=== PATIENT | male | born 1955 | race Caucasian/White ===

== ENCOUNTER → 2017-10-07 | Day surgery (SDC) | payer OTHER ==
[2017-10-02 10:04] VITALS: BMI 32.0
--- NOTE | 2017-10-02 10:43 | PAT Medication Instructions ---
Service Date Oct 02, 2017. Current Home Medication List Albuterol Sulfate (Proair Respiclick), 2 PUFFS INH PRN Clindamycin Phosphate (Topical (Clindamycin Phosphate), 1 APPLN TOP QAM Fluticasone Propionate (Nasal) (Flonase Allergy Relief), 2 SPRAYS INTNAS PRN Montelukast Sodium (Singulair), 10 MG PO QAM Pantoprazole (Protonix), 40 MG PO QPM Prednisone (Prednisone), 10 MG PO Q2D Medication Instructions For Your Scheduled Surgery - Hold the following medications 24 hours prior to surgery: Clindamycin Phosphate (Topical (Clindamycin Phosphate), 1 APPLN TOP QAM - Take the following medications the morning of surgery with a sip of water: Albuterol Sulfate (Proair Respiclick), 2 PUFFS INH PRN Fluticasone Propionate (Nasal) (Flonase Allergy Relief), 2 SPRAYS INTNAS PRN ( if needed) Montelukast Sodium (Singulair), 10 MG PO QAM Prednisone (Prednisone), 10 MG PO Q2D (if scheduled to take) - Take the following medications as scheduled the night before surgery: Albuterol Sulfate (Proair Respiclick), 2 PUFFS INH PRN Fluticasone Propionate (Nasal) (Flonase Allergy Relief), 2 SPRAYS INTNAS PRN ( if needed) Pantoprazole (Protonix), 40 MG PO QPM If you have any questions please call us at [phone] or [phone] or [phone]
[~2017-10-07] VITALS: Ht 177.8 cm; Wt 102.9 kg
[~2017-10-07] MED LIST: ALBU18002 INH; ATROPINE SULFATE 0.1 MG/ML 5ML SYR IV PRN; BUPIVACAINE 0.5 % 5 MG/1 ML MPF 30ML VIAL ONE; CEFAZOLIN 2000MG IV PUSH 15 ML IV SCH; CLIN1GEL5 TOP; DEXAMETHASONE SOD INJ 4 MG/ML VIAL ONE; EpHEDrine SULFATE INJ 50 MG/ML AMP IV PRN; FENTANYL CITRATE INJ 50 MCG/1 ML 2 ML VIAL ONE; FLUT0.15 INTNAS; HYDROCORTISONE SOD SUCCINATE 100 MG/2 ML VIAL ONE; HYDROmorphone INJ 1 MG/ML SYR IV PRN; KETOROLAC TROMETHAMINE 30 MG/ML VIAL ONE; LABETALOL HCL IV 5 MG/ML 20ML IV PRN; LACTATED RINGER'S 1000ML 1,000 ML IV SCH; LIDOCAINE HCL 1% 20 ML VIAL ONE; LIDOCAINE HCL 2% 2 ML VIAL (20MG/ML) ONE; MEPERIDINE HCL 25 MG/ML CARP IV PRN; MIDAZOLAM HCL 1 MG/ML 2ML VIAL ONE; MONT1TAB3 PO; MoRPHine SULFATE 4 MG/ML 1 ML CARP\\VIAL IV PRN; ONDANSETRON INJ 2 MG/ML 2 ML VIAL IV PRN; ONDANSETRON INJ 2 MG/ML 2 ML VIAL ONE; OXYCODONE/ACETAMINOPHEN 5-325 TAB PO PRN; PANT40TA PO; PHENYLEPHRINE 100MCG/ML 5ML SYR ONE; PRED10TA PO; PROPOFOL IV EMULSION 10 MG/ML 20 ML VIAL IV ONE; SODIUM CHLORIDE 0.9% 1000ML 1,000 ML IV SCH
[2017-10-07 05:35] VITALS: BP 117/75; PULSE 89; TEMP 37; O2SAT 94; Ht 177.8 cm; Wt 102.9 kg
--- NOTE | 2017-10-07 06:42 | History & Physical Bridge Note ---
H&P Re-Evaluation Bridge Note: I have examined the patient, reviewed the History & Physical and in the interval since the performance of the History & Physical I have noted the following changes of clinical significance: No changes noted
--- NOTE | 2017-10-07 07:58 | [facility] Post Operative Brief Note ---
Immediate Operative Summary Operative Date Oct 07, 2017. Pre-Operative Diagnosis Umbilical hernia Post-Operative Diagnosis Umbilical hernia Procedure(s) Performed Umbilical hernia repair with mesh Surgeon Dr. Zack Cardenas MD Personal Care Worker Surgeon(s) Eugenia Fortune PA-C Estimated Blood Loss 5ml Findings Consistent with Post-Op Diagnosis Specimens None per surgeon Drains None Anesthesia Type General Complication(s) none Disposition Disposition: Recovery Room / PACU
--- NOTE | 2017-10-07 08:01 | Discharge Instructions ---
Discharge Instructions Date of Service Oct 07, 2017. Admission Reason for Admission: Umbilical Hernia Discharge Discharge Diagnosis / Problem: Same Discharge Goals Goal(s): Decrease discomfort Activity Recommendations Activity Limitations: per Instructions/Follow-up section Lifting Limitations: no more than 10 pounds (for 6 weeks) Shower/Bathe: tomorrow (shower only) . Instructions / Follow-Up Instructions / Follow-Up ACTIVITY RECOMMENDATIONS: * Walk as much as possible. * No heavy lifting (>10 lbs.) for 6 weeks. SPECIAL CARE INSTRUCTIONS: * Ice to hernia repair site on and off until bedtime tonight. * May shower in 24 hours. Let water run over area and pat dry. * Remove plastic dressing and cotton ball after 4 days * Leave steri strips on for one week. * Call the surgeon's office with any questions or concerns - (ex. temperature higher than 101 degrees F, excessive bleeding or pain). MEDICATIONS: Resume previous medications unless instructed otherwise by your surgeon. * Ibuprofen 600 mg every 6 hours with food * Percocet 1 every 4 hours, as needed for pain FOLLOW UP VISIT: If not already scheduled, please call the office to schedule a two week follow- up appointment. Office number Current Hospital Diet Patient's current hospital diet: Discharge Diet Recommended Diet: Regular Diet Procedures Procedures Performed: Umbilical hernia repair with mesh Pending Studies Studies pending at discharge: no Medical Emergencies . Who to Call and When: Medical Emergencies: If at any time you feel your situation is an emergency, please call 911 immediately. . Non-Emergent Contact Non-Emergency issues call your: Primary Care Provider, Surgeon Call Non-Emergent contact if: your pain is worsening, wound has increased redness, wound has increased pain . "Provider Documentation" section prepared by Zack Cardenas. .
[2017-10-07] MEDS: FENTANYL CITRATE INJ 50 MCG/1 ML 2 ML VIAL IV PRN ×2 (08:30→08:35)
--- NOTE | 2017-10-07 08:53 | Anesthesiology Progress Note ---
Anesthesia Post Op Note Date & Time Oct 07, 2017 at 08:53 Vital Signs Pain Intensity: 5 Vital Signs Past 12 Hours Date Time Temp Pulse Resp B/P (MAP) Pulse Ox O2 Delivery O2 Flow Rate FiO2 10/07/17 08:45 88 14 115/67 94 Nasal Cannula 2 10/07/17 08:35 85 14 128/82 93 Nasal Cannula 2 10/07/17 08:25 84 15 106/84 93 Oxymask 3 10/07/17 08:17 36.4 89 15 119/81 95 Oxymask 5 10/07/17 05:35 37.0 89 18 117/75 (89) 94 Room Air Notes Mental Status: alert / awake / arousable, participated in evaluation Pt Amnestic to Procedure: Yes Nausea / Vomiting: adequately controlled Pain: adequately controlled Airway Patency, RR, SpO2: stable & adequate BP & HR: stable & adequate Hydration State: stable & adequate Anesthetic Complications: no major complications apparent
[2017-10-07 09:00] VITALS: BP 106/58; PULSE 89; TEMP 36.6; O2SAT 95
--- NOTE | 2017-10-07 09:01 | OPERATIVE REPORT ---
DATE OF OPERATION: 10/07/2017 PREOPERATIVE DIAGNOSIS: Umbilical hernia. POSTOPERATIVE DIAGNOSIS: Same. PROCEDURE: Repair of umbilical hernia. SURGEON: Zack Cardenas MD MEDICAL BILLING ASSISTANT: Eugenia Fortune PA-C FINDINGS: The patient had a hernia sac about the size of a golf ball. There were no incarcerated contents. The hernia defect itself measured 3 cm. There were no other defects identified. TECHNIQUE: The patient was given a general anesthetic and the area was prepped and draped in the usual sterile fashion. Transverse incision was made below the umbilicus and the hernia sac was identified. The tissues surrounding the hernia sac were away from the wall inferiorly and then to the left and right. It was then peeled off the overlying dermis of the umbilical skin and the superior side was freed as well. This dissection was carried out down to the edges of the fascial defect. The edges were then away from the hernia sac and a preperitoneal retrofascial space was created using blunt cautery and sharp dissection where appropriate for a distance of at least 3 cm around the entire defect. Hemostasis was assured and a 10-cm round mesh was then placed in the preperitoneal retrofascial space. It was secured to the undersurface of the fascia using horizontal mattress sutures of 0 PDS. The fascial defect was then closed with a running #1 PDS. The area was inspected for bleeding and none was seen. The dermis of the umbilical skin was tacked to the fascia with 4-0 Monocryl. The incision was then closed with a running 4-0 Monocryl. The incision was anesthetized with 0.5% Marcaine. The skin was cleansed, dried, benzoin placed, and Steri-Strips applied. A cotton ball was placed into the umbilicus and an Op-Site was placed over it. The estimated blood loss was 5 mL. Sponge, needle and instrument counts were correct prior to closure. The patient tolerated the surgical procedure without complication and was transferred to recovery. I attest to the content of the Intraoperative Record and any orders documented therein. Any exception s are noted below.
[2017-10-07 09:39] VITALS: BP 113/72; PULSE 83; O2SAT 94
[2017-10-07 10:00] VITALS: BP 107/65; PULSE 85; TEMP 36.5; O2SAT 93
== END | disposition home or self-care (01) ==
LOC: C.ACU 05:00
PROVIDERS: ATTEND Surgery
DX: K42.9 Umbilical hernia without obstruction or gangrene (principal); J43.9 Emphysema, unspecified; K21.9 Gastro-esophageal reflux disease without esophagitis; L40.9 Psoriasis, unspecified; Z86.711 Personal history of pulmonary embolism; Z85.820 Personal history of malignant melanoma of skin; Z87.891 Personal history of nicotine dependence; Z79.52 Long term (current) use of systemic steroids; Z90.2 Acquired absence of lung [part of]